=== PATIENT | female | born 1975 | race African-American/Black ===

== ENCOUNTER 2018-08-01 16:20 | Emergency (ER) | payer BC ==
[2018-08-01 17:48] LABS: #Basophils 0.1 thou/uL (0.0-0.2); #Eosinphils 0.1 thou/uL (0.0-0.7); #Lymphocytes 0.7 thou/uL (1.20-3.40); #Monocytes 0.5 thou/uL (0.11-0.59); #Neutrophils 9.7 thou/uL (1.40-6.50); %Basophils 0.5 % (0.0-1.0); %Eosinophils 0.5 % (0.0-10.0); %Lymphocytes 6.7 % (21.0-51.0); %Monocytes 4.2 % (0.0-10.0); %Neutrophils 88.2 % (42.0-75.0); Hemoglobin 11.3 g/dL (12.0-16.0); Mean Corpuscular HGB CONC 31.1 g/dL (32.0-36.0); Mean Corpuscular Hemoglobin 26.6 pg (27.0-31.0); Mean Corpuscular Volume 85.5 fL (78.0-98.0); Platelet Count 192 thou/uL (130-400); RBC Distribution Width 14.9 % (11.5-14.5); Red Blood Cell (RBC) Count 4.23 mill/uL (4.20-5.40)
[2018-08-01 17:52] LABS: BHCG - Serum Negative (NEGATIVE); Pregs Control Background? CLEAR/WHITE (CLR/WHITE); Pregs Control Bar Appear? YES (CONTROL BAR)
[2018-08-01 18:15] LABS: CKMB 0.2 ng/mL (0-6.6); Troponin I Less than 0.010 ng/mL (< 0.028)
[2018-08-01 19:38] LABS: Albumin 4.3 g/dL (3.5-5.0)
[2018-08-01 19:39] LABS: Chloride 105 mmol/L (98-107); Potassium 3.1 mmol/L (3.5-5.1); Sodium 139 mmol/L (136-145)
[2018-08-01 19:40] LABS: Calcium 9.2 mg/dL (7.8-10.44)
[2018-08-01 19:41] LABS: Globulin 2.7 g/dL (2.4-3.5); Glucose 88 mg/dL (70-105)
[2018-08-01 19:42] LABS: Anion Gap 12 mmol/L (10-20); Carbon Dioxide 25 mmol/L (22-29)
[2018-08-01 19:43] LABS: Alkaline Phosphatase 87 U/L (40-150); Bilirubin, Total 0.6 mg/dL (0.2-1.2)
[2018-08-01 19:44] LABS: Calc. Creatinine Clearance 0 mL/min (70-130); Estimated GFR-MDRD 86
[2018-08-01 19:45] LABS: BUN (Urea Nitrogen) 7 mg/dL (7.0-18.7)
[2018-08-01 19:46] LABS: AST (SGOT) 11 U/L (5-34)
[2018-08-01 19:47] LABS: ALT (SGPT) Less than 7 U/L (8-55)
--- NOTE | 2018-08-01 21:30 | ULT ---
PELVIC ULTRASOUND WITH DOPPLER (Transabdominal, transvaginal, fernandez scale, color flow and spectral doppler). 08/01/18 HISTORY: Heavy vaginal bleeding. FINDINGS: The uterus measures 9.4 x 6 x 6.8 cm. The endometrium is obscured. Multiple masses are seen in the ut erus, likely fibroids. The largest of these measures 3 x 3 x 2.3 cm. The right ovary measures 2.8 x 2.1 x 2.3 cm. The left ovary measures 3.2 x 2.1 x 1.8 cm. Flow is demo nstrated to both ovaries. There is a 2 cm cyst in the left ovary. A small amount of free fluid is see n in the posterior cul-de-sac. IMPRESSION: 1. Fibroid uterus. 2. 2 cm left ovarian cyst. 3. Small amount of free fluid in the cul-de-sac. POS: [facility]
== END 2018-08-01 21:58 | disposition home or self-care (01) ==
LOC: ERS 16:20
DX: D25.9 Leiomyoma of uterus, unspecified (principal)
CPT/HCPCS: 36415; 76856; 80053; 82553; 84484; 84703; 85025; 86850; 86900; 86901; 93005

== ENCOUNTER 2020-02-03 15:09 | Emergency (ER) | payer SELFPAY ==
[2020-02-03 15:47] LABS: #Lymphocytes 0.9 thou/uL (1.20-3.40); #Monocytes 0.3 thou/uL (0.11-0.59); #Neutrophils 3.9 thou/uL (1.40-6.50); %Basophils 0.6 % (0.0-1.0); %Eosinophils 0.6 % (0.0-10.0); %Lymphocytes 17.3 % (21.0-51.0); %Neutrophils 75.5 % (42.0-75.0); Hemoglobin 7.4 g/dL (12.0-16.0); Mean Corpuscular HGB CONC 28.4 g/dL (32.0-36.0); Mean Corpuscular Hemoglobin 16.3 pg (27.0-31.0); Mean Corpuscular Volume 57.5 fL (78.0-98.0); Platelet Count 170 thou/uL (130-400); RBC Distribution Width 18.6 % (11.5-14.5); Red Blood Cell (RBC) Count 4.56 mill/uL (4.20-5.40); White Blood Cell (WBC) Count 5.2 thou/uL (4.8-10.8)
[2020-02-03 16:09] LABS: Anisocytosis SLIGHT = 6-15 cells (100X) (0-5/hpf); Elliptocytes SLIGHT = 2-5 cells (100X) (0-1/hpf); Hypochromia MARKED = >30 cells (100X) (0-5/hpf); MDiff Complete? YES; Microcytosis MODERATE=15-30 cells (100X) (0-5/hpf); Platelet Morphology Comment Appears Adequate; Polychromasia MODERATE = 3-4 cells (100X) (0-2/hpf); Reflex for Review?? NO; Schistocytes SLIGHT = 2-5 cells (100X) (0-1/hpf); Target Cells SLIGHT = 2-5 cells (100X) (0-1/hpf); Tear Drops SLIGHT = 2-5 cells (100X) (0-1/hpf)
[2020-02-03 16:10] LABS: ALT (SGPT) 7 U/L (8-55); AST (SGOT) 12 U/L (5-34); Albumin 4.6 g/dL (3.5-5.0); Alkaline Phosphatase 80 U/L (40-110); Anion Gap 13 mmol/L (10-20); BUN (Urea Nitrogen) 7 mg/dL (7.0-18.7); Bilirubin, Total 0.6 mg/dL (0.2-1.2); Calc. Creatinine Clearance 0 mL/min (70-130); Calcium 9.5 mg/dL (7.8-10.44); Carbon Dioxide 21 mmol/L (22-29); Chloride 109 mmol/L (98-107); Estimated GFR-MDRD 84; Globulin 2.8 g/dL (2.4-3.5); Glucose 97 mg/dL (70-105); Potassium 3.3 mmol/L (3.5-5.1); Protein, Total 7.4 g/dL (6.0-8.3); Sodium 140 mmol/L (136-145)
== END 2020-02-03 17:50 | disposition home or self-care (01) ==
LOC: ERS 15:09
DX: D50.9 Iron deficiency anemia, unspecified (principal); F32.9 Major depressive disorder, single episode, unspecified
CPT/HCPCS: 36415; 80053; 85025; 86850; 86900; 86901; 99284

== ENCOUNTER 2020-05-19 11:38 | Emergency (ER) | payer SELFPAY ==
--- NOTE | 2020-05-19 12:37 | RAD ---
Chest one view HISTORY: Syncope. FINDINGS: Cardiac silhouette and pulmonary vasculature are unremarkable. Mediastinum is midline. No confluent airspace consolidation or evidence of pneumothorax. IMPRESSION : No abnormalities are demonstrated.
--- NOTE | 2020-05-19 13:31 | RAD ---
LEFT HIP 2 VIEWS: Date: 05/19/2020 HISTORY: Fall, left hip pain. FINDINGS/IMPRESSION: No acute fracture or dislocation is identified. POS: OFF
--- NOTE | 2020-05-19 13:32 | RAD ---
LEFT KNEE FOUR VIEWS: 05/19/20 HISTORY: Fall. Left knee pain. FINDINGS/IMPRESSION: No acute fracture or dislocation identified. POS: OFF
== END 2020-05-19 14:41 | disposition left against medical advice (07) ==
LOC: ERS 11:38
DX: R55 Syncope and collapse (principal); M25.552 Pain in left hip; M25.562 Pain in left knee; D50.9 Iron deficiency anemia, unspecified; G35 Multiple sclerosis; F32.9 Major depressive disorder, single episode, unspecified; W19.XXXA Unspecified fall, initial encounter
CPT/HCPCS: 71045; 93005